=== PATIENT | female | born 1980 | race Two or more races ===

== ENCOUNTER 2023-06-25 20:14 | Outpatient (CLI) | payer BC, SELFPAY ==
--- NOTE | 2023-07-02 08:38 | W.PM.SLEEP ---
Sleep Study Details Details Interpreting Provider: Peña Date of Sleep Study: 06/25/23 Sleep Study Details: STUDY TYPE: Hospital-based with CPAP titration ? BMI:? 53.1 ORDERING PROVIDER:Honey Turner INDICATION:? Concerns about sleep apnea ? SLEEP SUMMARY:? 375.5 minutes sleep time Arousal index 21.3 RESPIRATORY SUMMARY:? Mean oxygen awake 98, asleep 96, minimum 80 2.4 minutes oxygen between 80 and 88% AHI 50. Supine AHI 62.6. Nonsupine AHI 45.2. No REM stage sleep was seen during diagnostic portion of study. CPAP titration was performed and at pressures of 19 in 20 supine REM sleep was seen with an AHI of 0. PERIODIC LIMB MOVEMENTS OF SLEEP:? Post treatment index 1.2, index with arousal 0 CARDIAC:? Awake 79, asleep 76. No arrhythmias noted IMPRESSION:? Severe obstructive sleep apnea with somewhat worse in the supine position. CPAP titration was effective but only at pressures of 19 in 22 included supine REM sleep. RECOMMENDATION: Initiate CPAP at a pressure of 20. Patient may not tolerate this level of pressure may require a bilevel. Weight loss is also recommended.
== END 2023-06-25 20:15 | disposition home or self-care (01) ==
LOC: SLEEP 20:16
PROVIDERS: Visit Provider Registered Nurse
DX: G47.33 Obstructive sleep apnea (adult) (pediatric) (principal)
CPT/HCPCS: 95811

== ENCOUNTER 2024-04-03 17:29 | Outpatient (CLI) | payer BC, SELFPAY | END 2024-04-03 17:30 | disposition home or self-care (01) | LOC: AMB 04-04 03:09 | PROVIDERS: Visit Provider Student in an Organized Health Care Education/Training Program | DX: R19.00 Intra-abdominal and pelvic swelling, mass and lump, unspecified site (principal) | CPT/HCPCS: A0425; A0427 ==